=== PATIENT | female | born 1980 | race Caucasian/White ===

== ENCOUNTER 2019-04-22 11:54 | Emergency (ER) | payer BC, OTHER ==
[2019-04-22 12:06] VITALS: BP 101/66; PULSE 85; TEMP 98.4; BMI 25.2
--- NOTE | 2019-04-22 12:07 | PDOC ---
Rapid Medical Evaluation Chief Complaint: Bite Time Seen by Provider: 04/22/19 12:02 Medical Evaluation: 04/22/19 12:03 I have performed a brief in-person evaluation of this patient. The patient presents with a chief complaint of: dog bite by neighbor's dog in [place] at 3 pm yesterday flew in last night). stitched in [place] yesterday, given tdap, ibuprofen, dicloxacillin, and first rabies shot but no rabies immunoglobulin(? ) Pertinent physical exam findings: bite to R lower leg I have ordered the following: nothing The patient will proceed to the ED for further evaluation. Discharge Disposition - Diagnosis Dog bite - Referrals - Patient Instructions - Post Discharge Activity
--- NOTE | 2019-04-22 12:35 | PDOC ---
History of Present Illness - General Chief Complaint: Bite Stated Complaint: DOG BITE Time Seen by Provider: 04/22/19 12:02 History Source: Patient, Spouse Exam Limitations: No Limitations - History of Present Illness Initial Comments: 04/22/19 12:30 Return from [place] yesterday when on way to the airport was assaulted/attacked by a stray dog/unknown vaccination record and bitten in her right calf. Was seen, cleaned it evaluated by emergency department in [place] where she received a tetanus vaccination, and first rabies vaccination. Also placed on dicloxacillin 4 times daily. Patient states is painful but does not have fever and has been draining bloody drainage. No erythema, no purulent drainage noted. 04/22/19 13:23 Occurred: reports: yesterday Severity: reports: moderate, severe Pain Location: reports: lower extremity (Right calf) Modifying Factors: improves with: pain medication Loss of Consciousness: no loss of consciousness Associated Symptoms (Fall): denies symptoms Past History - Travel Traveled outside of the country in the last 30 days: No Close contact w/someone who was outside of country & ill: No - Past Medical History Allergies/Adverse Reactions: Allergies Allergy/AdvReac Type Severity Reaction Status Date / Time No Known Allergies Allergy Verified 04/22/19 12:06 Home Medications: Ambulatory Orders NK [No Known Home Medication] 04/22/19 COPD: No Kidney Stones: No - Surgical History Cholecystectomy: No - Immunization History Immunization Up to Date: Yes - Psycho Social/Smoking Cessation Hx Smoking History: Never smoked Have you smoked in the past 12 months: No Information on smoking cessation initiated: No Hx Alcohol Use: No Drug/Substance Use Hx: No Review of Systems - Review of Systems Able to Perform ROS?: Yes Is the patient limited Urdu proficient: Yes Constitutional: Yes: Symptoms Reported, See HPI, Malaise. No: Fever HEENTM: Yes: Symptoms Reported Respiratory: No: Symptoms reported Musculoskeletal: Yes: Symptoms Reported, See HPI, Joint Pain Neurological: Yes: Symptoms reported, See HPI All Other Systems: Reviewed and Negative *Physical Exam - Vital Signs Last Vital Signs Temp Pulse Resp BP Pulse Ox 98.4 F 85 18 101/66 98 04/22/19 12:03 04/22/19 12:03 04/22/19 12:03 04/22/19 12:03 04/22/19 12:03 - Physical Exam General Appearance: Yes: Nourished, Appropriately Dressed, Apparent Distress, Mild Distress HEENT: positive: ISABEL, Normal ENT Inspection, TMs Normal, Pharynx Normal Neck: positive: Supple. negative: Tender Respiratory/Chest: positive: Normal Breath Sounds. negative: Wheezing Musculoskeletal: positive: Decreased Range of Motion. negative: Normal Inspection Extremity: positive: Normal Capillary Refill, Normal Range of Motion Integumentary: positive: Normal Color, Dry, Warm, Other (3 different sites of puncture wounds that are sutured loosely with what appears to be silk thread. ( Was performed in [place]) no redness, swelling, or purulent drainage noted from wounds. Has some ecchymosis noted circumferentially consistent with subcutaneous and intramuscular bleeding and bite wound. Is ambulatory). negative: Erythema Neurologic: positive: block engraver II-XII NML intact, Fully Oriented, Normal Response Procedures - Splinting Splint Location: Right: Knee Pre-Made Type: aircast Post-Proc Neuro Vasc Exam: normal ED Progress Note - Progress Note Progress Note: 04/22/19 13:25 Dog bite, sustained yesterday in [place]. Discussed case with [facility] department who recommends initiating all of treatment for rabies prophylaxis again. Patient comes with records but uncertain as to type of rabies vaccination and was not given immunoglobulin. Therefore started with immunoglobulin and infiltrated the wound with half of the amount and given remainder to left gluteus. First rabies vaccination administered. Discharge - Discharge Information Problems reviewed: Yes Clinical Impression/Diagnosis: Rabies exposure Dog bite Qualifiers: Encounter type: initial encounter Qualified Code(s): W54.0XXA - Bitten by dog, initial encounter Condition: Stable Disposition: HOME - Admission No - Follow up/Referral - Patient Discharge Instructions Patient Printed Discharge Instructions: DI for Animal Bites Additional Instructions: Return April 25 for remaining vaccines. - Post Discharge Activity Work/Back to School Note: Back to Work
[2019-04-22] MEDS ORDERED: RABIES IMMUNE GLOBULIN 300 UNITS/1 ML VIAL IM ONE (13:10)
[2019-04-22] MEDS ORDERED: RABIES VACCINE (PCEC)/PF 2.5 UNIT/VIAL IM ONE (13:11)
== END 2019-04-22 14:58 | disposition home or self-care (01) ==
LOC: JERFT 11:54
PROC: 3E0234Z Introduction of Serum, Toxoid and Vaccine into Muscle, Percutaneous Approach (ICD-10-PCS; principal; 2019-04-22)
PROC: 3E0234Z Introduction of Serum, Toxoid and Vaccine into Muscle, Percutaneous Approach (ICD-10-PCS; 2019-04-22)
DX: Z20.3 Contact with and (suspected) exposure to rabies (principal); W54.0XXD Bitten by dog, subsequent encounter; Y93.89 Activity, other specified; Y92.89 Other specified places as the place of occurrence of the external cause; Y99.8 Other external cause status
CPT/HCPCS: 90375; 90675; 99281-25

== ENCOUNTER 2019-04-25 11:09 | Emergency (ER) | payer BC, OTHER ==
[2019-04-25 11:14] VITALS: BP 104/71; PULSE 82; TEMP 98; BMI 25.8
[2019-04-25] MEDS ORDERED: RABIES VACCINE (PCEC)/PF 2.5 UNIT/VIAL IM ONE (11:20)
--- NOTE | 2019-04-25 11:36 | PDOC ---
History of Present Illness - General Chief Complaint: Revisit,Rabies Injection Stated Complaint: FOLLOW UP Time Seen by Provider: 04/25/19 11:16 History Source: Patient Exam Limitations: No Limitations Past History - Past Medical History Allergies/Adverse Reactions: Allergies Allergy/AdvReac Type Severity Reaction Status Date / Time No Known Allergies Allergy Verified 04/25/19 11:13 Home Medications: Ambulatory Orders NK [No Known Home Medication] 04/22/19 COPD: No Kidney Stones: No - Surgical History Cholecystectomy: No - Immunization History Immunization Up to Date: Yes - Psycho Social/Smoking Cessation Hx Smoking History: Never smoked Have you smoked in the past 12 months: No Hx Alcohol Use: No Drug/Substance Use Hx: No *Physical Exam - Vital Signs Last Vital Signs Temp Pulse Resp BP Pulse Ox 98 F 82 18 104/71 98 04/25/19 11:11 04/25/19 11:11 04/25/19 11:11 04/25/19 11:11 04/25/19 11:11 - Physical Exam General Appearance: No: Apparent Distress Extremity: positive: Other (R calf wound with stitches in place, no surrounding erythema, no streaking, no drainage, no fluctuance, no induration) Neurologic: positive: Alert, Normal Mood/Affect Medical Decision Making - Medical Decision Making 38 y/o F with no sig pmh presents with second rabies vaccine shot in series. Patient was bit in R calf by dog in [place]. Patient was started on dicloxacillin there and states the wound was stitched up (happened on 04/21). She was started on rabies series on 04/22 (mentions she got a shot in [place] but since there was no documentation to confirm, the series was restarted on 04/22). Denies fever, drainage. No sign of infection along R calf bite Second rabies shot given D/W Dr. Garcia - recommends stitch removal in next visit 04/25/19 11:35 Discharge - Discharge Information Problems reviewed: Yes Clinical Impression/Diagnosis: Rabies, need for prophylactic vaccination against Condition: Stable Disposition: HOME - Admission No - Additional Discharge Information Prescription Drug Monitoring Program (I-STOP) results: I-STOP not reviewed - Follow up/Referral - Patient Discharge Instructions Patient Printed Discharge Instructions: DI for Rabies Vaccine Additional Instructions: Thank you for choosing [facility]. It was a pleasure taking care of you. Please continue the antibiotics as was prescribed Return on 04/29 and 05/06 for your next rabies vaccine You will have your stitches removed in the next visit. Return to the Emergency Department if your symptoms worsen or persist, you have fever, redness, pustular drainage or other concerning symptoms. - Post Discharge Activity
[2019-04-25] MEDS ORDERED: BACITRACIN 15 GM TUBE TOPICAL OINTMENT ONE (11:45)
== END 2019-04-25 11:47 | disposition home or self-care (01) ==
LOC: JERFT 11:09
PROC: 3E0234Z Introduction of Serum, Toxoid and Vaccine into Muscle, Percutaneous Approach (ICD-10-PCS; principal; 2019-04-25)
DX: Z20.3 Contact with and (suspected) exposure to rabies (principal); S81.851D Open bite, right lower leg, subsequent encounter; W54.0XXD Bitten by dog, subsequent encounter
CPT/HCPCS: 99281-25

== ENCOUNTER 2019-04-29 08:59 | Emergency (ER) | payer BC, OTHER ==
[2019-04-29 09:06] VITALS: BP 105/57; PULSE 78; TEMP 98.5; BMI 25.8
[2019-04-29] MEDS ORDERED: RABIES VACCINE (PCEC)/PF 2.5 UNIT/VIAL IM ONE ×2 (09:11→09:26)
--- NOTE | 2019-04-29 09:38 | PDOC ---
History of Present Illness - General Chief Complaint: Revisit,Rabies Injection Stated Complaint: rabies shot Time Seen by Provider: 04/29/19 09:08 History Source: Patient Exam Limitations: No Limitations - History of Present Illness Initial Comments: 04/29/19 09:32 38 yo F comes in for 3rd Rabies shot. She sustained a dogbite in [place] on 04/[address] to the airport. Received her first rabies shot and sutures to the bite wounds in [place] on 04/22. She is also taking augmentin. NO medical complaints today. She came in the ED for her 2nd Rabies vaccine and is here today for her 3rd one. She is also here for suture removal. It has been 7 days since they were placed in. No fever/chills, no NVD, no difficulty ambulating. 04/29/19 09:38 Past History - Past Medical History Allergies/Adverse Reactions: Allergies Allergy/AdvReac Type Severity Reaction Status Date / Time No Known Allergies Allergy Verified 04/29/19 09:04 Home Medications: Ambulatory Orders NK [No Known Home Medication] 04/22/19 COPD: No Kidney Stones: No - Surgical History Cholecystectomy: No - Immunization History Immunization Up to Date: Yes - Psycho Social/Smoking Cessation Hx Smoking History: Never smoked Have you smoked in the past 12 months: No Hx Alcohol Use: No Drug/Substance Use Hx: No Review of Systems - Review of Systems Able to Perform ROS?: Yes Constitutional: No: Chills, Fever, Malaise, Night Sweats HEENTM: No: Eye Pain, Recent change in vision, Throat Pain Respiratory: No: Cough, Shortness of Breath Cardiac (ROS): No: Chest Pain, Palpitations, Chest Tightness ABD/GI: No: Diarrhea, Nausea, Vomiting, Abdominal cramping : No: Dysuria, Hematuria Musculoskeletal: No: Back Pain Integumentary: No: Rash Neurological: No: Headache, Numbness, Dizziness Psychiatric: No: Change in Appetite Endocrine: No: Unexplained Weight Loss *Physical Exam - Vital Signs Last Vital Signs Temp Pulse Resp BP Pulse Ox 98.5 F 78 16 105/57 L 100 04/29/19 09:04 04/29/19 09:04 04/29/19 09:04 04/29/19 09:04 04/29/19 09:04 - Physical Exam General Appearance: Yes: Nourished. No: Apparent Distress HEENT: positive: ISABEL, Normal ENT Inspection, Normal Voice. negative: Pale Conjunctivae, Scleral Icterus (R), Scleral Icterus (L) Neck: positive: Supple. negative: Decreased range of motion, Tender midline Respiratory/Chest: negative: Respiratory Distress, Accessory Muscle Use Cardiovascular: positive: Regular Rate Extremity: positive: Normal Capillary Refill, Normal Range of Motion, Other (R lower leg with 3 wounds with intact sutures in place, 1 of the wounds with mild deshiscence, sutures not ready yet. The other 2 sutures from other wounds ready to be removed. (+) mild surrounding erythema, likely reactive, (+)diffuse bruising with yellowish-brownish skin discoloration and mild tenderness, no fluctuance, no induration, no streaking, no signs of abscess). negative: Pedal Edema Integumentary: positive: Normal Color, Dry. negative: Jaundice, Rash Neurologic: positive: Fully Oriented, Alert, Normal Mood/Affect Medical Decision Making - Medical Decision Making 04/29/19 09:35 38 yo F here for 3rd Rabies vaccine and suture removal. 2 of the sutures are ready for removal. The others are not. Pt to return in 3 days to remove remaining sutures. 3rd Rabies shot administered Will return on 05/06 for last Rabies shot Return for worsening/concerning symptoms Take antibiotics as prescribed. Discharge - Discharge Information Problems reviewed: Yes Clinical Impression/Diagnosis: Rabies, need for prophylactic vaccination against Dog bite Qualifiers: Encounter type: subsequent encounter Qualified Code(s): W54.0XXD - Bitten by dog, subsequent encounter Condition: Stable Disposition: HOME - Follow up/Referral - Patient Discharge Instructions - Post Discharge Activity
== END 2019-04-29 09:50 | disposition home or self-care (01) ==
LOC: JERFT 08:59
PROC: 3E0234Z Introduction of Serum, Toxoid and Vaccine into Muscle, Percutaneous Approach (ICD-10-PCS; principal; 2019-04-29)
DX: Z20.3 Contact with and (suspected) exposure to rabies (principal); W54.0XXD Bitten by dog, subsequent encounter
CPT/HCPCS: 90675; 99281-25

== ENCOUNTER 2019-05-02 09:13 | Emergency (ER) | payer BC, OTHER ==
[2019-05-02 09:24] VITALS: BP 104/69; PULSE 96; TEMP 98.6; BMI 25.8
--- NOTE | 2019-05-02 09:37 | PDOC ---
Suture Removal/Wound Check HPI - History of Present Illness Chief Complaint: Suture/Staple Removal (other) Stated Complaint: STITCHES REMOVAL Time Seen by Provider: 05/02/19 09:20 History Source: Yes: Patient Exam Limitations: Yes: No Limitations Past History - Past Medical History Allergies/Adverse Reactions: Allergies Allergy/AdvReac Type Severity Reaction Status Date / Time No Known Allergies Allergy Verified 05/02/19 09:18 Home Medications: Ambulatory Orders NK [No Known Home Medication] 04/22/19 COPD: No Kidney Stones: No - Surgical History Cholecystectomy: No - Immunization History Immunization Up to Date: Yes - Psycho Social/Smoking Cessation Hx Smoking History: Never smoked Have you smoked in the past 12 months: No Information on smoking cessation initiated: No Hx Alcohol Use: No Drug/Substance Use Hx: No Suture Removal/Wound Check PE - Physical Exam Laceration/Wound Check Symptoms: denies: Pain, Fever, Chills, Redness, Discharge , Bleeding Location of Laceration/Wound: right: Leg ([address] along RLE, + ecchymosis, no erythema, no pus drainage, no streaking, no fluctuance) *Physical Exam - Vital Signs Last Vital Signs Temp Pulse Resp BP Pulse Ox 98.6 F 96 H 18 104/69 99 05/02/19 09:16 05/02/19 09:16 05/02/19 09:16 05/02/19 09:16 05/02/19 09:16 Medical Decision Making - Medical Decision Making 38 y/o F s/p dog bite to RLE in [place] 04/21 presents for suture removal (sutures were placed in [place]). Patient had 2 stitches placed on 04/29 and was advised to return in 3 days for remaining stitches to be taken out. Patient has already finished her antibiotics. Has 1 pending rabies shot left. Denies fever, redness , discharge Remaining 3 stitches removed 05/02/19 09:36 Discharge - Discharge Information Problems reviewed: Yes Clinical Impression/Diagnosis: Encounter for removal of sutures Condition: Stable Disposition: HOME - Admission No - Additional Discharge Information Prescription Drug Monitoring Program (I-STOP) results: I-STOP not reviewed - Follow up/Referral - Patient Discharge Instructions Patient Printed Discharge Instructions: DI for Suture Removal Additional Instructions: Thank you for choosing [facility]. It was a pleasure taking care of you. Return 05/06 for last rabies shot Return to the Emergency Department if your symptoms worsen or persist, you have fever, pus drainage, streaking, redness or other concerning symptoms. - Post Discharge Activity
== END 2019-05-02 09:41 | disposition home or self-care (01) ==
LOC: JER 09:13 → JERFT 09:13
DX: Z48.817 Encounter for surgical aftercare following surgery on the skin and subcutaneous tissue (principal); Z48.02 Encounter for removal of sutures
CPT/HCPCS: 99281-25

== ENCOUNTER 2019-05-06 04:29 | Emergency (ER) | payer BC, OTHER ==
--- NOTE | 2019-05-06 04:46 | PDOC ---
History of Present Illness - General Stated Complaint: FOLLOW UP RABIES VACCINATION Time Seen by Provider: 05/06/19 04:46 History Source: Patient Exam Limitations: No Limitations - History of Present Illness Initial Comments: 39 year old female with no PMH presented to ED for fourth rabies vaccination s/ p dog bite by friends dog in [place]. Pt was seen in [facility] ED 04/22 for initial visit and 1st rabies vaccination, 04/25 for 2nd rabies vaccination, 04/29 for 3rd rabies vaccination and 05/02 for suture removal. Pt denied fever, chills, nausea, vomiting, weakness, numbness, tingling, erythema, or any other complaints. Past History - Past Medical History Allergies/Adverse Reactions: Allergies Allergy/AdvReac Type Severity Reaction Status Date / Time No Known Allergies Allergy Verified 05/06/19 04:48 Home Medications: Ambulatory Orders NK [No Known Home Medication] 04/22/19 COPD: No Kidney Stones: No - Surgical History Cholecystectomy: No - Immunization History Immunization Up to Date: Yes - Psycho Social/Smoking Cessation Hx Smoking History: Never smoked Have you smoked in the past 12 months: No Hx Alcohol Use: No Drug/Substance Use Hx: No Review of Systems - Review of Systems Able to Perform ROS?: Yes Comments:: ROS General: denied fever, chills, generalized weakness. HEENT: denied sore throat, rhinorrhea, ear pain. Cardiovascular: denied chest pain, palpitations, syncope, diaphoresis. Respiratory: denied shortness of breath, cough, sputum production, hemoptysis. Gastrointestinal: denied abdominal pain, nausea, vomiting, diarrhea, constipation, blood in stool. Genitourinary: denied dysuria, increased urinary frequency, hematuria, urinary incontinence, flank pain. Back: denied back pain. Musculoskeletal: denied joint pain, muscle pain, joint swelling. Neurological: denied headache, dizziness, numbness, tingling, weakness. Integumentary: denied rash, laceration, abrasion. Hematologic/Lymphatic: denied bruising or bleeding. PE Constitutional: Well-nourished, Well-developed, appearing stated age. HEENT: head is normocephalic, atraumatic. EOMI. PERRLA. Neck: supple. Full ROM. Cardiovascular: regular heart rhythm. no murmurs. no pericardial friction rub. Respiratory: clear to auscultation bilaterally. no crackles, rhonchi or wheezing. no stridor. Gastrointestinal: soft, nontender. normal bowel sounds. no rebound, guarding, masses. Extremities: peripheral pulses intact. no lower extremity edema. right calf with multiple healing bite wounds, no surrounding erythema, no streaking. Neurological: CN 2-12 grossly intact. moves all four extremities. Psych: awake, alert, oriented x3. follows commands. answers questions appropriately. Medical Decision Making - Medical Decision Making 39 year old female with above PMH presented to ED for 4th rabies vaccination. Initial Vital Signs Temp Pulse Resp BP Pulse Ox 97.8 F 86 20 101/84 99 05/06/19 04:49 05/06/19 04:49 05/06/19 04:49 05/06/19 04:49 05/06/19 04:49 Afebrile. No tachycardia. No tachypnea. Normal BP for age. No hypoxia on room air. Rabies vaccine given. This will be the last vaccine, as pt is not immunocompromised. Discharge - Discharge Information Problems reviewed: Yes Clinical Impression/Diagnosis: Dog bite, Rabies, need for prophylactic vaccination against Condition: Stable Disposition: HOME - Admission No - Follow up/Referral - Patient Discharge Instructions Patient Printed Discharge Instructions: DI for Rabies Vaccine Additional Instructions: You received the last rabies vaccine. Return to the Emergency Department for chest pain, shortness of breath, swelling , weakness, numbness, tingling, vomiting, fever, increasing redness around the wound, increasing pain, or any other new, worsening or concerning symptoms. - Post Discharge Activity Work/Back to School Note: Back to Work
[2019-05-06 04:52] VITALS: BP 101/84; PULSE 86; TEMP 97.8; BMI 30.2
--- NOTE | 2019-05-06 04:52 | PDOC ---
Attending Attestation - Resident Resident Name: Cristina Kincaid - ED Attending Attestation I have performed the following: I have examined & evaluated the patient, The case was reviewed & discussed with the resident, I agree w/resident's findings & plan - HPI HPI: 05/06/19 04:52 see resident hpi - Physicial Exam PE: 05/06/19 04:52 agree with resident exam - Medical Decision Making 05/06/19 04:52 39-year-old female here for rabies vaccine, #4.
[2019-05-06] MEDS ORDERED: RABIES VACCINE (PCEC)/PF 2.5 UNIT/VIAL IM ONE (04:57)
[2019-05-06] MEDS: RABIES VACCINE (PCEC)/PF 2.5 UNIT/VIAL IM ONE ×2 (05:02→05:08)
== END 2019-05-06 05:17 | disposition home or self-care (01) ==
LOC: JER 04:29
PROC: 3E0234Z Introduction of Serum, Toxoid and Vaccine into Muscle, Percutaneous Approach (ICD-10-PCS; principal; 2019-05-06)
DX: Z23 Encounter for immunization (principal); Z20.3 Contact with and (suspected) exposure to rabies
CPT/HCPCS: 90675; 99281-25